=== PATIENT | male | born 1970 | race Caucasian/White ===

== ENCOUNTER 2017-03-26 05:32 | Emergency (ER) | payer SELFPAY ==
[~2017-03-26] VITALS: Ht 188 cm; Wt 113.2 kg
[~2017-03-26 05:32] MED LIST: CLEOCIN300 MG PO; DELTASONE20 M1 PO
[2017-03-26 06:34] LABS: BASOPHIL COUNT 0.1 K/uL (0-0.1); EOSINOPHIL (%) 2.1 % (0-5); EOSINOPHIL COUNT 0.2 K/uL (0-0.3); HEMATOCRIT 42.2 % (38.0-50.0); IMMATURE GRANULOCYTE (%) 0.2 % (0.0-0.7); INSTRUMENT ABS NEUTROPHIL CT 6.7 K/uL; MCH 31.8 PG (29.0-34.0); MCV 88.3 FL (86-99); MEAN PLAT.VOLUME 8.5 uM^3 (9.0-12.4); MONOCYTE (%) 9.4 % (3-12); MONOCYTE COUNT 0.9 K/uL (0-0.8); NEUTROPHIL (%) 67.3 % (45-76); NEUTROPHIL COUNT 6.7 K/uL (1.8-6.4); PLATELET COUNT 275 K/uL (156-360); RBC DIS.WIDTH-CV 12.2 % (11.8-14.6); RBC DIS.WIDTH-SD 39.3 % (39-53); RED BLOOD COUNT 4.78 M/uL (4.00-5.50)
[2017-03-26 06:44] LABS: CHLORIDE 106 mEq/L (99-109); POTASSIUM 3.7 mEq/L (3.7-5.4); SODIUM 139 mEq/L (136-147)
[2017-03-26 06:45] LABS: GLUCOSE 105 mg/dL (70-99)
[2017-03-26 06:47] LABS: ANION GAP 12 MEQ/L (2-14)
[2017-03-26 06:49] LABS: GFR ESTIMATE (CALCULATED) > 59 mL/min/
[2017-03-26 06:50] LABS: UREA NITROGEN (BUN) 11 mg/dL (9-23)
[2017-03-26] MEDS ORDERED: TYLENOL WITH C1 EACH PO (08:13)
[2017-03-26] MEDS ORDERED: CLEOCIN300 MG PO (08:13)
[2017-03-26] MEDS ORDERED: LISINOPRIL20 MG PO ×2 (08:13→08:23)
[2017-03-26 08:55] VITALS: BP 169/114
== END 2017-03-26 08:55 | disposition home or self-care (01) ==
LOC: EME 05:32
PROVIDERS: Emergency Medicine
DX: K04.7 Periapical abscess without sinus (principal); I10 Essential (primary) hypertension; Z88.0 Allergy status to penicillin; F17.200 Nicotine dependence, unspecified, uncomplicated
CPT/HCPCS: 80048; 81003; 85025; 99281; 99284